=== PATIENT | female | born 1945 | race Caucasian/White ===

== ENCOUNTER 2016-07-28 10:46 | Emergency (ER) | payer MEDICARE, OTHER ==
[~2016-07-28 10:46] MED LIST: ATIVAN-DPS0.5 MG PO; BENADRYL25 MG PO; COMPAZINE10 MG PO; FEMARA DPS2.5 MG PO; FOSAMAX70 MG PO; HYDROCODONE 5MG/5 MG PO; MAALOX DPS30 ML PO; MIRALAX PACKET17 GM PO; NITROSTAT0.4 MG SL; PEPCID DPS20 MG PO; REMERON DPS30 MG PO; SURFAK DPS240 MG PO; SYNTHROID50 MCG PO; TYLENOL DP650 MG/20. PO; ZOFRAN4 MG PO
--- NOTE | 2016-08-05 21:25 | ER ---
ADMIT: 07/28/2016 RM/LOC: ER [facility] MR#: [id number] [address] [address] KENNY DEL ROSARIO [address] [place] [address] Emergency Room Report SEX: F AGE: 70 : 1945 DATE: 07/28/2016 ADDENDUM: This patient comes to the ER because she has had a cough for the last 2 days. She does not have any pain or any shortness of breath. She is here because she has been trying to get a hold of her doctor for the last 2 days to get Phenergan with codeine cough syrup and nobody we will call her back. She does not have any fevers and has a normal appetite. On physical exam, she does have a cobblestone appearance in the posterior pharynx. Her lungs are clear. O2 saturation is normal. I did write a prescription for 4 ounces of Phenergan with codeine. She is to follow up with her primary as needed. DIAGNOSIS: Upper respiratory infection. MARY Garcia / Augie Ortiz MD / charlene JOB #: [id number] CC: Augie Ortiz MD, Attending Physician Lakshmi Parekh MD, Family Physician
[2016-10-02] MEDS ORDERED: FOSAMAX70 MG PO (11:42)
[2016-10-02] MEDS ORDERED: ZESTRIL DPS10 MG PO (11:42)
[2016-10-02] MEDS ORDERED: ASPIR 8181 MG PO (11:43)
[2016-10-02] MEDS ORDERED: DAILY MULTIPLE1 EAC1 PO (11:43)
[2016-10-02] MEDS ORDERED: CALCIUM 600 +1 EAC6 PO (11:44)
[2016-10-02] MEDS ORDERED: TYLENOL DPS325 MG PO (11:44)
== END 2016-07-28 11:13 | disposition home or self-care (01) ==
LOC: ER 10:46
DX: J06.9 Acute upper respiratory infection, unspecified (principal); Z85.3 Personal history of malignant neoplasm of breast; Z90.710 Acquired absence of both cervix and uterus; Z79.899 Other long term (current) drug therapy

== ENCOUNTER 2016-08-19 11:12 | Emergency (ER) | payer MEDICARE, OTHER ==
--- NOTE | 2016-08-29 09:41 | ER ---
ADMIT: 08/19/2016 RM/LOC: ER [facility] MR#: [id number] [address] [address] KENNY DEL ROSARIO [address] [place] [address] Emergency Room Report SEX: F AGE: 70 : 1945 DATE: 08/19/2016 ADDENDUM: CHIEF COMPLAINT: Decreased bowels through ostomy. HISTORY OF PRESENT ILLNESS: This is a 70-year-old female, who has an ostomy secondary to diverticulitis and bowel resection. She comes in today saying that she has had decreased output for the last 2 months. She is just concerned about it. She is not having any pain, but just concerned that there is an issue. CT is done in the ER. She does have a small hernia next to the ostomy. I did have Dr. Hernández also come in to the room and tried if he could palpate it, both of us are not able to palpate it. I spoke with Dr. Markham. At this time, she is okay to go home and just follow up with surgeon this week. At this time, she is not obstructed. She is to hold irrigation, try MiraLax, push fluids, and follow up with the surgeon this week. CLINICAL IMPRESSION: Constipation secondary to an ostomy hernia. MARY Moncada / Alek Hernández MD / modl JOB #: [id number] CC: Alek Hernández MD, Attending Physician
[2016-10-02] MEDS ORDERED: FOSAMAX70 MG PO (11:42)
[2016-10-02] MEDS ORDERED: ZESTRIL DPS10 MG PO (11:42)
[2016-10-02] MEDS ORDERED: DAILY MULTIPLE1 EAC1 PO (11:43)
[2016-10-02] MEDS ORDERED: ASPIR 8181 MG PO (11:43)
[2016-10-02] MEDS ORDERED: TYLENOL DPS325 MG PO (11:44)
[2016-10-02] MEDS ORDERED: CALCIUM 600 +1 EAC6 PO (11:44)
== END 2016-08-19 13:30 | disposition home or self-care (01) ==
LOC: ER 11:12
DX: K59.09 Other constipation (principal); E03.9 Hypothyroidism, unspecified; Z93.3 Colostomy status; Z88.8 Allergy status to other drugs, medicaments and biological substances; Z79.811 Long term (current) use of aromatase inhibitors; Z79.899 Other long term (current) drug therapy; Z85.3 Personal history of malignant neoplasm of breast

== ENCOUNTER → 2016-08-29 | Outpatient (CLI) | payer MEDICARE, OTHER ==
[~2016-08-29] MED LIST changes: +ASPIR 8181 MG PO; +CALCIUM 600 +1 EAC6 PO; +DAILY MULTIPLE1 EAC1 PO; +TYLENOL DPS325 MG PO; +ZESTRIL DPS10 MG PO
== END | disposition home or self-care (01) ==
LOC: RAD.S 13:35
DX: N64.4 Mastodynia (principal); N63 Unspecified lump in breast; Z85.3 Personal history of malignant neoplasm of breast; Z98.890 Other specified postprocedural states

== ENCOUNTER → 2016-09-07 | Outpatient (CLI) | payer MEDICARE, OTHER | END | disposition home or self-care (01) | LOC: RAD.S 12:25 | DX: C50.912 Malignant neoplasm of unspecified site of left female breast (principal); D05.90 Unspecified type of carcinoma in situ of unspecified breast; I10 Essential (primary) hypertension; M85.89 Other specified disorders of bone density and structure, multiple sites; Z17.0 Estrogen receptor positive status [ER+] ==

== ENCOUNTER 2016-09-20 14:17 | Inpatient (IN) | payer MEDICARE, OTHER ==
[~2016-09-20] VITALS: Ht 160 cm; Wt 65.6 kg
[~2016-09-20 14:17] MED LIST changes: -ASPIR 8181 MG PO; -CALCIUM 600 +1 EAC6 PO; -DAILY MULTIPLE1 EAC1 PO; -TYLENOL DPS325 MG PO; -ZESTRIL DPS10 MG PO
[2016-10-02] MEDS ORDERED: FOSAMAX70 MG PO (11:42)
[2016-10-02] MEDS ORDERED: ZESTRIL DPS10 MG PO (11:42)
[2016-10-02] MEDS ORDERED: ASPIR 8181 MG PO (11:43)
[2016-10-02] MEDS ORDERED: DAILY MULTIPLE1 EAC1 PO (11:43)
[2016-10-02] MEDS ORDERED: TYLENOL DPS325 MG PO (11:44)
[2016-10-02] MEDS ORDERED: CALCIUM 600 +1 EAC6 PO (11:44)
--- NOTE | 2016-10-16 07:06 | OR ---
ADMIT: 09/27/2016 RM/LOC: 504 [facility] MR#: [id number] [address] [address] KENNY DEL ROSARIO [address] [place] [address] Operative/Delivery Room Report SEX: F AGE: 70 : 1945 SURGERY DATE: 09/27/2016 SURGEON: Eugene Campos MD PREOPERATIVE DIAGNOSIS: Undesired colostomy. POSTOPERATIVE DIAGNOSIS: Undesired colostomy. PROCEDURE PERFORMED: 1. Laparoscopic colostomy takedown. 2. Laparoscopic takedown of splenic flexure. PRIMER WATERPROOFING MACHINE ADJUSTER: Alex Markham MD ANESTHESIA: General endotracheal with addition of Marcaine in the wounds postprocedure. ESTIMATED BLOOD LOSS: Approximately 100 mL. DESCRIPTION OF PROCEDURE: After appropriate informed consent was obtained, the patient was brought to the operating room. General endotracheal anesthesia was induced. The patient's abdomen was prepped and draped in a sterile fashion. it should be noted that she was supine held in place with a ayers bag. All extremities were appropriately padded and Yellofin stirrups were used to hold her legs. So, with the abdomen prepped and draped I made a small incision in the supraumbilical region. Veress needles was introduced into the abdomen and insufflated with CO2. A 5 mm trocar was then placed. Camera was introduced and the abdomen was surveyed. She had extensive adhesions particularly in the lower abdomen from her previous surgery. I actually ended up placing 3 additional ports on the right side of her abdomen, all 5 mm ports. Through these working ports and then moving the camera around, I was able to take down all these adhesions using the Endo Adelso as well as Harmonic Scalpel. I could easily identify the colostomy site. There did not appear to be a really large hernia around this. Ultimately, I took down all the adhesions around the colostomy site. It was difficult to identify the rectum, it was pretty stuck down in the pelvis, but as I got the loops of small bowel pulled up and out of there, I was able to identify the anterior wall of the rectum and felt we had enough length that I could not have to do too much dissection there. So then, I made an incision around the colostomy site, this was carried deep with cautery. The colostomy was freed up from the fascia and a good length of bowel was brought up through the abdominal wall. The hernia sac was excised off the bowel from her peristomal hernia. I then ended up dividing across the distal end of the bowel removing the area that had the skin and that was matured as an ostomy. I placed a 2-0 Prolene suture in a purse-string fashion around the cut end of the bowel. She had a very small caliber lumen, so we used a 29 EEA stapler. This was introduced easily and the purse-string closed down. Once I was satisfied with the anvil position in the end of the bowel, the bowel was reintroduced to the abdominal cavity. Gloves were changed. I then closed the fascial defect ADMIT: 09/27/2016 RM/LOC: 504 [facility] MR#: [id number] [facility] [address] [address] KENNY DEL ROSARIO [facility] [place] [address] Operative/Delivery Room Report SEX: F AGE: 70 : 1945 using 2 running single stranded #1 PDS sutures starting at either end and closed in the middle. This brought this hernia site and the muscle back together nicely, so I did not have to use any mesh. The abdomen was then reinsufflated. Unfortunately, we just did not have enough length of bowel to get down and get the colon together, in addition to that, it was difficult to really very easily identify the end of the rectum, so Dr. Markham went below and passed a series of dilators up from below. Even then we could never get the dilators to go up to the staple line or to the end of the rectum. So, he used a colonoscope then and pass this up from below and it was just a very tortuous and tight rectum, especially rectosigmoid junction. He tried the smallest dilator again and in doing so, we could see some mucosal splitting and stretching even on the other layers of the sigmoid on the serosa, so we abandoned any further attempts. It became evident that we would not be able to get the stapler up from below. So, I was going to have to take and remove more of the sigmoid to get down to the mid rectum to create the anastomosis. So, Dr. Markham scrubbed back in, I ended up dividing along the mesentery to the sigmoid, and I used the Harmonic Scalpel for that, took this dissection down to the mid rectum and then defatted the rectum until I got a nice area in the mid rectum to transect across with the Endo-XI stapler. It took 2 loads of Endo-XI stapler 3.5 mm toby to get across the mid rectum. The specimen was then sent to the side for subsequent retrieval later on. Now that we had less rectum or sigmoid to work with, I was going to have to get more length of proximal bowel, so I had to take down the entire splenic flexure as well as the transverse colon and descending colon were sort of stuck together, so we had unfold that also, this was all done with Harmonic Scalpel and it was a very tedious and difficult part of the dissection, but ultimately I got the bowel all freed up and straightened out and got enough length to reach down into the pelvis for the anastomosis. Once I had adequate length and Dr. Markham went back below. He was now able to easily pass the dilators up from below and then also bringing the stapler up and brought it out just anterior to our transecting staple line on the rectum. The two ends of the stapler were brought together. The EEA stapler was then closed down and subsequently fired. The stapler was removed. The anastomosis appeared nice with no tension. It was then air tested and there was no leak. So, at this point, I still had to retrieve the sigmoid portion of sigmoid that I had removed separately, so I clamped onto that with a locking grasper. Ended up closing the larger 12 mm port site in the right lower quadrant with a figure- ADMIT: 09/27/2016 RM/LOC: 504 [facility] MR#: [id number] [address] [address] KENNY DEL ROSARIO [address] [place] [address] Operative/Delivery Room Report SEX: F AGE: 70 : 1945 of-eight 0 Vicryl suture in the laparoscopic suture passing device. I then reopened the left lower quadrant incision or previous colostomy site incision and brought this end of the sigmoid up and removed that specimen through there. That fascial defect then was reclosed using again a two #1 PDS sutures starting at either end and tied in the middle. All the wounds were infiltrated with Marcaine. The skin was then closed with skin toby. Telfa keturah were placed. The left lower quadrant incision. Sterile dressings were then applied. Dr. Markham assisted in this entire procedure. His help was necessary for retraction and camera driving during this very difficult dissection. Eugene Campos MD/ charlene JOB #: [id number] CC: Eugene Campos, Attending Physician Lakshmi Parekh, Family Physician Lakshmi Parekh MD
--- NOTE | 2016-11-05 14:00 | DS ---
ADMIT: 09/27/2016 RM/LOC: 504 [facility] MR#: [id number] [address] [place] [id number] KENNY DEL ROSARIO [address] [place] [address] Discharge Summary SEX: F AGE: 70 : 1945 ADMISSION DATE: 09/27/2016 DISCHARGE DATE: 10/01/2016 ADMITTING DIAGNOSIS: Undesired colostomy. DISMISSAL DIAGNOSES: 1. Undesired colostomy. 2. Mild chronic diverticulitis of the large intestine. 3. Hypertension. 4. Tonsillectomy. 5. Breast surgery. 6. Hysterectomy. PROCEDURES: 1. Laparoscopic colostomy take down. 2. Laparoscopic takedown of splenic flexure. HOSPITAL COURSE: The patient was an inpatient admit with routine med/surg orders. After surgery, the patient transferred to the floor without any complications. She was given a morphine SAIL CUTTER for pain control and was tolerating clears. Overall, the patient recovered well while in the hospital. A Morales that was placed intraoperatively was pulled on postop day number one. She tolerated an advanced diet, weaned off her SAIL CUTTER and was tolerating oral pain medications. She had normal return of her bowel function. She was not doing well with hydrocodone but her pain was controlled when switched to oxycodone. We did give her a bowel regimen to assist with bowel function. The patient continued to recover well and was able to discharge home on 10/01/2016. DISCHARGE INSTRUCTIONS: 1. Diet as tolerated. 2. Activity as tolerated. 3. Keep dressings clean and dry. 4. Home Health Care to see tomorrow. ADMIT: 09/27/2016 RM/LOC: 504 [facility] MR#: [id number] [address] [place] [address] KENNY DEL ROSARIO [address] [place] [address] Discharge Summary SEX: F AGE: 70 : 1945 5. Follow up with Dr. Campos, October 05. DISCHARGE MEDICATIONS: 1. Synthroid 50 mcg daily. 2. Fosamax 70 mg weekly. 3. Lisinopril 10 mg daily. 4. Aspirin 81 mg daily. 5. Multivitamin daily. 6. Calcium 600 mg with vitamin D daily. 7. Femara 2.5 mg daily. 8. Tylenol over the counter q.4h p.r.n. 9. MiraLAX 17 g packet [id number] daily. MARY Rivas / Eugene Campos MD / vdg JOB #: [id number] CC: Eugene Campos MD, Attending Physician Lakshmi Parekh MD, Family Physician
== END 2016-10-01 15:23 | disposition home health service (06) | DRG 330 ==
LOC: WOR 09-27 05:26 → 5MS 09-27 05:26
PROVIDERS: ADMIT Surgery
PROC: 0DQN4ZZ Repair Sigmoid Colon, Percutaneous Endoscopic Approach (ICD-10-PCS; principal; 2016-09-27)
PROC: 0WQF4ZZ Repair Abdominal Wall, Percutaneous Endoscopic Approach (ICD-10-PCS; principal; 2016-09-27)
PROC: 0DBN4ZZ Excision of Sigmoid Colon, Percutaneous Endoscopic Approach (ICD-10-PCS; principal; 2016-09-27)
PROC: 0DNW4ZZ Release Peritoneum, Percutaneous Endoscopic Approach (ICD-10-PCS; principal; 2016-09-27)
DX: Z43.3 Encounter for attention to colostomy (principal); K57.32 Diverticulitis of large intestine without perforation or abscess without bleeding; I10 Essential (primary) hypertension; K46.9 Unspecified abdominal hernia without obstruction or gangrene; K66.0 Peritoneal adhesions (postprocedural) (postinfection); K59.00 Constipation, unspecified; F32.9 Major depressive disorder, single episode, unspecified; F41.9 Anxiety disorder, unspecified; E07.9 Disorder of thyroid, unspecified; Z87.891 Personal history of nicotine dependence; Z85.3 Personal history of malignant neoplasm of breast

== ENCOUNTER 2016-10-10 00:13 | Emergency (ER) | payer MEDICARE, OTHER ==
[~2016-10-10 00:13] MED LIST changes: +ASPIR 8181 MG PO; +CALCIUM 600 +1 EAC6 PO; +DAILY MULTIPLE1 EAC1 PO; +TYLENOL DPS325 MG PO; +ZESTRIL DPS10 MG PO
--- NOTE | 2016-10-10 04:21 | ER ---
ADMIT: 10/10/2016 RM/LOC: ER [facility] MR#: [id number] 26[address] [facility] [address] [place], [place] [address] KENNY DEL ROSARIO [address] [place] [address] Emergency Room Report SEX: F AGE: 70 : 1945 DATE: 10/10/2016 The patient is a 70-year-old female, status post colostomy takedown on September 27, states that her pain is intensified to the point where she is unable to move. Took 2 Percocet before ambulance transfer and ambulance used fentanyl 100 mcg IV push with some improvement. The patient denies any fevers, chills, vomiting, or diarrhea. Exam remarkable for nontoxic, afebrile female, somewhat tender in left lower quadrant over site of colostomy takedown. CT confirms seroma, no evidence of bowel obstruction. Anastomotic site minimally inflamed. Normal CBC, CMP, and glucose. Lactic acid 0.8. Urinalysis is negative. The patient ultimately consented to Toradol for pain and then ultimately consented to Dilaudid prior to discharge. Follow up Dr. Campos as scheduled later today. Lalo Vaughn MD/ charlene JOB #: [id number] CC: Lalo Vaughn MD, Attending Physician Lakshmi Parekh MD, Family Physician MD Lakshmi Khan MD
== END 2016-10-10 03:06 | disposition home or self-care (01) ==
LOC: ER 00:13
DX: G89.18 Other acute postprocedural pain (principal); R10.9 Unspecified abdominal pain; I10 Essential (primary) hypertension; E07.9 Disorder of thyroid, unspecified; Z90.89 Acquired absence of other organs; Z85.3 Personal history of malignant neoplasm of breast; Z88.5 Allergy status to narcotic agent; Z93.3 Colostomy status

== ENCOUNTER 2016-10-11 01:16 | Emergency (ER) | payer MEDICARE, OTHER ==
--- NOTE | 2016-10-11 19:08 | ER ---
ADMIT: 10/11/2016 RM/LOC: ER [facility] MR#: [id number] [address] [address] KENNY DEL ROSARIO [address] [place] [address] Emergency Room Report SEX: F AGE: 70 : 1945 DATE: 10/11/2016 HISTORY OF PRESENT ILLNESS: The patient is a 70-year-old female with a past medical history of diverticulitis status post colectomy and colostomy takedown on the September, came to the ER with chief complaint of left lower quadrant abdominal pain. The patient denies any nausea or vomiting or fever. The patient states the last few days she had very small bowel movement, it was all loose. The patient has been in the ER last night for the same symptom and received pain control and had CT of the abdomen and pelvis, which was positive for seroma without any acute abdominal pathologies, also all the lab works were also noncontributory, and the patient was discharged to home with some Percocet, which the patient did not take because she was worried about the constipation. The patient states she ate food and denies any nausea or vomiting. PHYSICAL EXAMINATION: VITAL SIGNS: The patient is afebrile, vitals are stable. GENERAL: The patient is anxious and mildly in distress. HEAD AND NECK: Normal, and mucous membranes are not dry. CHEST: Clear bilaterally. HEART: Normal heart sounds without gallops. ABDOMEN: Completely soft without any tenderness or rebound, there is no CVA tenderness. The rest of the physical examination is noncontributory. After reviewing the patient's CT scan, which was done last night, which showed considerable amount of the stool in the rectum, I contacted Dr. Sharp and acknowledged that having enema with just 60 mL of water could be safe, we did the enema. The patient's pain was also moderately controlled. Enema resulted in mild loose stool. The rectal exam also the patient did not have any fecal impaction and rectal vault was empty. The patient had white BC of 7.3. Abdominal exam was soft and benign. The patient's pain was reasonably controlled, the patient had no signs of obstruction, no nausea or vomiting. The patient is taking MiraLAX and was discharged to home and advised to follow up with the primary doctor with abdominal pain resolved and constipation. Mitchell Curiel MD/ charlene JOB #: [id number] CC: Mitchell Curiel MD, Attending Physician Lakshmi Parekh MD, Family Physician
== END 2016-10-11 03:40 | disposition home or self-care (01) ==
LOC: ER 01:16
DX: K59.00 Constipation, unspecified (principal); Z90.49 Acquired absence of other specified parts of digestive tract; Z93.3 Colostomy status; Z88.5 Allergy status to narcotic agent